=== PATIENT | female | born 1995 | race Caucasian/White ===

== ENCOUNTER 2022-03-26 20:00 | Emergency (ER) | payer OTHER, BC, SELFPAY ==
[2022-03-26 20:02] VITALS: BP 155/101; PULSE 104; RESP 20; TEMP 36.3; O2SAT 100
--- NOTE | 2022-03-26 20:21 | ED.GENADULT ---
HPI - General Adult General Chief complaint: Dental/Oral Stated complaint: general Time Seen by Provider: 03/26/22 20:08 History of Present Illness HPI narrative: 26-year-old female presenting the emergency department for evaluation of nausea vomiting diarrhea. Patient did have a dental procedure for gum recession a few days ago. Patient had been taking Tylenol for pain control without significant improvement. Patient did contact her dentist and was advised to start taking high doses of ibuprofen. Patient does describe some mild epigastric pain with associated nausea vomiting and diarrhea. Patient states she does have a history of gastritis and does take omeprazole daily. Patient states she is not menstruating and has no prior history of hematuria. Related Data Home Medications Medication Instructions Recorded Confirmed buspirone 10 mg tablet mg 03/26/22 duloxetine 60 mg capsule,delayed mg PO 03/26/22 release lamotrigine 100 mg tablet mg 03/26/22 omeprazole 20 mg capsule,delayed mg 03/26/22 release Allergies Allergy/AdvReac Type Severity Reaction Status Date / Time azithromycin Allergy Unknown Rash Verified 03/26/22 20:26 sulfamethoxazole Allergy Unknown Rash Verified 03/26/22 20:26 tree nut Allergy Unknown Anaphylactic Verified 03/26/22 20:26 Shock trimethoprim Allergy Unknown Rash Verified 03/26/22 20:26 Review of Systems Review of Systems: CONSTITUTIONAL: Denies fever, chills, or sweats. EYES: Denies visual changes, redness, or discharge. ENT: Denies rhinorrhea, congestion, sore throat, or otalgia. CARDIOVASCULAR: Denies chest pain, palpitations, or edema. RESPIRATORY: Denies cough or dyspnea. GASTROINTESTINAL: See HPI GENITOURINARY: Denies dysuria or hematuria. SKIN: Denies rash or itching. MUSCULOSKELETAL: Denies back pain, joint pain, or myalgia. NEUROLOGIC: Denies headache, numbness, or weakness. Exam Narrative: APPEARANCE: Well appearing, no pain, no distress, well-nourished. HEAD: normocephalic, atraumatic. Mouth: Gum packing in place EYES: PERRLA/EOMI, conjunctivae clear. NOSE: Normal no drainage EARS:TMS clear with good light reflex. THROAT: Pharynx clear, no exudate. NECK: Supple. No adenopathy, no masses. RESPIRATORY: Airway patent, respirations nonlabored. Clear to auscultation bilaterally, no rales, rhonchi, wheezing. CARDIOVASCULAR: Regular rate and rhythm without murmurs rubs or gallops. ABDOMINAL: Soft, some epigastric tenderness otherwise abdomen is soft nontender with normal bowel sounds. Nonsurgical abdomen. MUSCULOSKELETAL: Moves all extremities. Strength/ROM intact, No edema, No calf tenderness. NEURO: Alert. Cranial nerves II through XII intact. Grossly intact SKIN: Warm, dry. Normal Color Course Course Emergency Course: Patient was treated with IV saline and IV Zofran. Patient did feel improved with treatment. Patient is afebrile but does have a leukocytosis of 12.9. Patient's abdomen is soft and nontender on reevaluation. Patient did have hematuria, patient denies any vaginal bleeding. Patient also had ketones in her urine but was treated with IV fluids. Urine culture is pending patient does have history of hematuria. Urine does not appear to be infected so antibiotics not being started at this time. Patient was encouraged to increase her omeprazole due to the possibility of her increased ibuprofen use causing gastritis. Patient was encouraged to decrease her ibuprofen intake. Patient was also provided Zofran for nausea control. Patient was encouraged to have close follow-up with her primary care physician. Vital Signs Vital signs: Vital Signs Temperature 97.3 F L 03/26/22 20:02 Pulse Rate 104 H 03/26/22 20:02 Respiratory Rate 20 03/26/22 20:02 Blood Pressure 155/101 H 03/26/22 20:02 Pulse Oximetry 100 03/26/22 20:02 Oxygen Delivery Room Air 03/26/22 20:02 Temperature 97.3 F L 03/26/22 20:02 Pulse Rate 95 03/26/22 22:32 Respiratory
[2022-03-26] MEDS: SODIUM CHLORIDE 0.9% IV 1,000 ML 999 ML IV CONT (20:34)
[2022-03-26] MEDS: ONDANSETRON INJ 4 MG/2 ML VIAL IV PUSH (20:34)
[2022-03-26] MEDS: PANTOPRAZOLE SODIUM IV 40 MG VIAL IV PUSH (20:34)
[2022-03-26 20:45] LABS: Basophils Percent Auto 0.1 % (0.2-1.2); Hematocrit 41.4 % (37.0-47.0); Hemoglobin 13.6 g/dL (12.0-15.0); Immature Granulocyte Absolute 0.05 K/mm3 (0.00-0.031); Immature Granulocyte Percent A 0.4 % (0-0.5); Lymphocytes Absolute Auto 1.42 K/mm3 (0.9-3.2); Mean Corpuscular HGB Conc 32.9 g/dl (32-36); Mean Corpuscular Hemoglobin 26.9 pg (26-34); Mean Corpuscular Volume 81.8 fl (80-100); Monocytes Absolute Auto 0.4 K/mm3 (0.1-0.6); Monocytes Percent Auto 3.2 % (2.6-8.5); Neutrophils Percent Auto 85.3 % (45.5-73.1); Platelet Count Result 375 k/mm3 (150-375); Red Blood Count 5.06 M/mm3 (4.2-5.4); Red Cell Distribution Width 13.8 % (11.5-14.5); White Blood Count 12.9 K/mm3 (4.5-10.0)
[2022-03-26 20:46] LABS: Appearance Urine Clear (Clear); Bilirubin Urine Negative (Negative); Blood Urine 1+ (Negative); Color Urine Yellow (Yellow); Glucose Urine UA Negative (Negative); Ketones Urine 2+ mg/dL (Negative); Leukocyte Esterase Ur Negative LEU/UL (Negative); Nitrate Urine Negative (Negative); Protein Urine 1+ mg/dL (Negative); Specific Grav Ur >= 1.030 (1.001-1.035); Urobilinogen Urine 0.2 mg/dL (<2.0)
[2022-03-26 20:56] LABS: Alanine Aminotransferase 28 U/L (6-35); Albumin Level 4.8 g/dL (3.5-5.1); Alkaline Phosphatase 85 U/L (38-126); Anion Gap 10 mmol/L (8-16); Aspartate Amino Transferase 32 U/L (14-36); Bilirubin,Total 0.5 mg/dL (0.2-1.3); Blood Urea Nitrogen 8 mg/dL (7-17); Calcium 9.4 mg/dL (8.4-10.2); Carbon Dioxide 25 mmol/L (22-30); Chloride 102 mmol/L (98-107); Estimated CRCL calculation 87 ml/min; Estimated Glomerular Filt Rate > 60; Glucose 99 mg/dL (65-110); Potassium 3.7 mmol/L (3.4-5.0); Sodium 137 mmol/L (137-145)
[2022-03-26 21:03] LABS: Bacteria Urine Trace /hpf; Mucus Urine Moderate /lpf; RBC Urine 21-50 /hpf (0-2); Squamous Epithelial Cell Urine Few /hpf (Few)
[2022-03-26 21:06] LABS: Add Urine Microscopic? YES
[2022-03-26 21:28] VITALS: BP 141/96; PULSE 82; RESP 16; O2SAT 100
[2022-03-26 22:32] VITALS: BP 130/89; PULSE 95; RESP 18; O2SAT 100
== END 2022-03-26 22:33 | disposition home or self-care (01) ==
PROVIDERS: Emergency Provider Emergency Medicine; PCP Internal Medicine
DX: R11.2 Nausea with vomiting, unspecified (principal); R31.9 Hematuria, unspecified
CPT/HCPCS: 36415; 80053; 81001; 81025; 85025; 96361; 96374; 96375; 99284; C9113; J2405; J7030

== ENCOUNTER 2024-01-06 18:54 | Emergency (ER) | payer BC, SELFPAY ==
--- NOTE | ~2024-01-06 | CT_ITS ---
CT of the Abdomen and Pelvis: Indication: Abdominal pain Technique: 2.5 mm axial scans were obtained through the abdomen and pelvis following intravenous adm inistration of 100 cc of Omnipaque 350. Dose reduction technique was used on this scan by utilizing a utomated exposure control and iterative reconstruction technique. The dose-length product (DLP) was 3 53.32 mGy-cm. Findings: Scans through the lung bases are unremarkable. The liver, spleen, pancreas, gallbladder, adrenals and kidneys are within normal limits. No evidence of aortic aneurysm. No lymphadenopathy. No bowel obstruction or bowel wall thickening. There is no evidence to suggest acute appendicitis. Images through the pelvis were performed. Urinary bladder unremarkable. No definite pelvic mass seen. Probable trace pelvic free fluid, nonspecific. Impression: Trace pelvic free fluid, nonspecific, possibly physiologic. Reviewed, dictated and finalized at [facility]. DRY FINISHER Impression: Trace pelvic free fluid, nonspecific, possibly physiologic.
[2024-01-06 18:54] VITALS: BP 138/88; PULSE 117; RESP 16; TEMP 36.5; O2SAT 98
[2024-01-06 20:31] VITALS: BP 140/80; PULSE 122; RESP 18; O2SAT 100
[2024-01-06 20:54] LABS: Basophils Percent Auto 0.2 % (0.2-1.2); Hematocrit 38.2 % (37.0-47.0); Hemoglobin 12.8 g/dL (12.0-15.0); Immature Granulocyte Absolute 0.07 K/mm3 (0.00-0.031); Immature Granulocyte Percent A 0.4 % (0-0.5); Lymphocytes Absolute Auto 1.31 K/mm3 (0.9-3.2); Lymphocytes Percent Auto 7.6 % (18.3-44.2); Mean Corpuscular HGB Conc 33.5 g/dl (32-36); Mean Corpuscular Hemoglobin 25.4 pg (26-34); Mean Corpuscular Volume 75.9 fl (80-100); Monocytes Absolute Auto 0.4 K/mm3 (0.1-0.6); Monocytes Percent Auto 2.3 % (2.6-8.5); Neutrophils Absolute Auto 15.5 K/mm3 (1.3-6.7); Neutrophils Percent Auto 89.5 % (45.5-73.1); Platelet Count Result 296 k/mm3 (150-375); Red Blood Count 5.03 M/mm3 (4.2-5.4); Red Cell Distribution Width 14.8 % (11.5-14.5); White Blood Count 17.3 K/mm3 (4.5-10.0)
[2024-01-06 21:04] LABS: Alanine Aminotransferase 23 U/L (6-35); Albumin Level 4.9 g/dL (3.5-5.1); Alkaline Phosphatase 95 U/L (38-126); Anion Gap 14 mmol/L (4-12); Aspartate Amino Transferase 28 U/L (14-36); Bilirubin,Total 0.3 mg/dL (0.2-1.3); Blood Urea Nitrogen 7 mg/dL (7-17); Calcium 10.3 mg/dL (8.4-10.2); Carbon Dioxide 20 mmol/L (22-30); Chloride 103 mmol/L (98-107); Estimated CRCL calculation 109 ml/min; Estimated Glomerular Filt Rate > 60; Glucose 126 mg/dL (65-110); Lipase 126 U/L (23-300); Potassium 3.8 mmol/L (3.4-5.0); Sodium 137 mmol/L (137-145)
[2024-01-06 22:16] LABS: Add Urine Microscopic? YES; Appearance Urine Turbid (Clear); Bacteria Urine None Seen /hpf; Bilirubin Urine Negative (Negative); Blood Urine 1+ (Negative); Color Urine Yellow (Yellow); Glucose Urine UA Negative (Negative); Ketones Urine 3+ mg/dL (Negative); Leukocyte Esterase Ur Negative LEU/UL (Negative); Nitrate Urine Negative (Negative); Non Pathogenic Casts 0-2; Protein Urine 2+ mg/dL (Negative); RBC Urine 51-100 /hpf (0-2); Specific Grav Ur 1.025 (1.001-1.035); Squamous Epithelial Cell Urine None Seen /hpf (Few); Urobilinogen Urine 0.2 mg/dL (<2.0); WBC Urine 0-5 /hpf (0-3); pH Urine >=9.0 (5.0-9.0)
[2024-01-06] MEDS: ONDANSETRON INJ 4 MG/2 ML VIAL IV PUSH (22:20)
[2024-01-06] MEDS: SODIUM CHLORIDE 0.9% IV 1,000 ML 999 ML IV CONT (22:20)
[2024-01-06] MEDS: MORPHINE SULFATE (*CRX) 4 MG/ML INJ IV PUSH (22:44)
--- NOTE | 2024-01-06 22:56 | ED_ITS ---
HPI - General Adult General Chief complaint: Nausea/Vomiting/Diarrhea Stated complaint: n/v Time Seen by Provider: 01/06/24 21:54 History of Present Illness HPI narrative: Patient 28-year-old female who presents emergency department chief complaint of abdominal pain nausea vomiting and diarrhea. Patient reports that she recently had a colposcopy after an abnormal Pap smear patient reports that started having nausea vomiting about every 20 minutes and had some diarrhea. Patient states she has cramping sensation throughout her abdomen the patient denies fever. The patient was seen in urgent care and referred to the emergency department for further evaluation Related Data Home Medications Medication Instructions Recorded Confirmed buspirone 10 mg tablet mg 03/26/22 01/04/24 lamotrigine 100 mg tablet mg 03/26/22 01/04/24 omeprazole 20 mg capsule,delayed mg 03/26/22 01/04/24 release escitalopram oxalate 10 mg tablet 10 mg PO DAILY 12/20/23 01/04/24 (Lexapro) Allergies Allergy/AdvReac Type Severity Reaction Status Date / Time azithromycin Allergy Unknown Rash Verified 01/06/24 20:32 sulfamethoxazole Allergy Unknown Rash Verified 01/06/24 20:32 tree nut Allergy Unknown Anaphylactic Verified 01/06/24 20:32 Shock trimethoprim Allergy Unknown Rash Verified 01/06/24 20:32 Review of Systems Review of Systems: A 10 system review of systems was completed on the patient and is negative except for what is stated in the HPI. Nursing and ancillary documentation was reviewed. [facility] Past Medical History Medical History Abnormal Pap smear of cervix BMI 25.0-25.9,adult Surgical History Surgical History H/O wisdom tooth extraction History of colposcopy Family History Family History Father Hypertension Diabetes mellitus Mother Hypertension Sibling No problems noted. 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 Gender identity (if verbalized by the patient): Female Exam Narrative: GENERAL: Well-appearing, well-nourished, and in no acute distress. HEAD: Normocephalic, atraumatic. EYES: PERRLA and EOMI. ENT: Nares clear, no rhinorrhea or epistaxis. Mucous membranes moist. NECK: Supple. CHEST: Clear to auscultation. No respiratory distress. HEART: Regular rate and rhythm. No murmur heard. Normal peripheral pulses. ABDOMEN: Soft, nontender, nondistended, normal active bowel sounds. EXTREMITIES: Normal range of motion. No edema. SKIN: Warm, dry, no rash. NEURO: No focal deficits. Alert and oriented x3. PSYCH: Normal mood and affect. Course Vital Signs Vital signs: Vital Signs Temperature 36.5 C 01/06/24 18:54 Pulse Rate 117 H 01/06/24 18:54 Respiratory Rate 16 01/06/24 18:54 Blood Pressure 138/88 01/06/24 18:54 Pulse Oximetry 98 01/06/24 18:54 Temperature 36.5 C 01/06/24 18:54 Pulse Rate 98 01/07/24 01:23 Respiratory Rate 14 01/07/24 01:23 Blood Pressure 122/74 01/07/24 01:23 Pulse Oximetry 98 01/07/24 01:23 Medical Decision Making [facility] Narrative Medical decision making narrative: differential diagnosis includes intra-abdominal infection, diverticulitis, colitis, gastroenteritis laboratory studies were obtained on the patient showed a white count of 17.3 electrolytes showed no significant abnormality urinalysis showed 51-100 red blood cells in the urine. CT scan of the abdomen pelvis showed no acute abnormality patient received IV fluids antiemetics and is feeling much better Vital Signs Vital Signs: Vital Signs Temperature 36.5 C 01/06/24 18:54 Pulse Rate 117 H 01/06/24 18:54 Respiratory Rate 16 01/06/24 18:54 Blood Pressure 138/88 01/06/24 18:54 Pulse Oximetry 98 01/06/24 18:54 Temperature 36.5 C 01/06/24 18:54 Pulse Rate 98 01/07/24 01:23 Respiratory Rate 14 01/07/24 01:23 Blood Pressure 122/74 01/07/24 01:23 Pulse Oximetry 98 01/07/24 01:23 Lab Data 01/06/24 20:46 01/06/24 20:46 Labs: Lab Results 01/06/24 01/06/24 Range/Units 20:46 22:02 WBC 17.3 H (4.5-10.0) K/mm3 RBC 5.03 (4.2-5.4) M/mm3 Hgb 12.8 (12.0-15.0) g/dL Hct 38.2 (37.0-47.0) % MCV 75.9 L (80-100) fl MCH 25.4 L (26-34) pg MCHC 33.5 (32-36) g/dl RDW 14.8 H (11.5-14.5) % Plt Count 296 (150-375) k/mm3 MPV 10.0 (7.4-10.4) fl Immature Gran % (Auto) 0.4 (0-0.5) % Neut % (Auto) 89.5 H (45.5-73.1) % Lymph % (Auto) 7.6 L (18.3-44.2) % Early % (Auto) 2.3 L (2.6-8.5) % Eos % (Auto) 0.0 (0-4.4) % Baso % (Auto) 0.2 (0.2-1.2) % Lymph # (Auto) 1.31 (0.9-3.2) K/mm3 Early # (Auto) 0.4 (0.1-0.6) K/mm3 Eos # (Auto) 0.0 (0-0.3) K/mm3 Baso # (Auto) 0.0 (0.0-0.1) K/mm3 Abs Immat Gran (auto) 0.07 H (0.00-0.031) K/mm3 Absolute Neuts (auto) 15.5 H (1.3-6.7) K/mm3 Absolute Nucleated RBC 0.000 (0.0-0.012) K/mm3 Nucleated RBC % 0.0 (0.0-0.2) % Sodium 137 (137-145) mmol/L Potassium 3.8 (3.4-5.0) mmol/L Chloride 103 (98-107) mmol/L Carbon Dioxide 20 L (22-30) mmol/L Anion Gap 14 H (4-12) mmol/L BUN 7 (7-17) mg/dL Creatinine 0.70 (0.7-1.0) mg/dL Estim Creat Clear Calc 109 ml/min Estimated GFR > 60 (59 - ) Glucose 126 H (65-110) mg/dL Calcium 10.3 H (8.4-10.2) mg/dL Total Bilirubin 0.3 (0.2-1.3) mg/dL AST 28 (14-36) U/L ALT 23 (6-35) U/L Alkaline Phosphatase 95 (38-126) U/L Total Protein 9.0 H (6.3-8.2) g/dL Albumin 4.9 (3.5-5.1) g/dL Lipase 126 (23-300) U/L Urine Color Yellow (Yellow) Urine Appearance Turbid H (Clear) Urine pH >=9.0 H (5.0-9.0) Ur Specific [place] 1.025 (1.001-1.035) Urine Protein 2+ H (Negative) mg/dL Urine Glucose (UA) Negative (Negative) mg/dL Urine Ketones 3+ H (Negative) mg/dL Ur Blood (Man) 1+ H (Negative) Urine Nitrate Negative (Negative) Urine Bilirubin Negative (Negative) Urine Urobilinogen 0.2 (<2.0) mg/dL Leukocyte Esterase Rfl Negative (Negative) TAYA/UL Urine RBC 51-100 H (0-2) /hpf Urine WBC 0-5 (0-3) /hpf Ur Squamous Epith Cells None seen (Few) /hpf Urine Bacteria None seen /hpf Urine Casts 0-2 Discharge Plan Discharge Clinical Impression: Abdominal pain, Nausea & vomiting Patient Disposition: Home, Self-Care Condition: Stable Instructions: Antibiotic Form, Acute Nausea and Vomiting (ED), Abdominal Pain (ED) Prescriptions: New ondansetron 4 mg tablet,disintegrating 4 mg PO Q8H PRN (Reason: nausea and vomiting) Qty: 10 0RF No Action escitalopram oxalate [Lexapro] 10 mg tablet 10 mg PO DAILY buspirone 10 mg tablet omeprazole 20 mg capsule,delayed release(DR/EC) lamotrigine 100 mg tablet 1 mg-20 mcg (24)/75 mg (4) tablet 1 tablet PO DAILY Qty: 84 3RF Follow-up/Referrals: Lani,Aravind Rice MD [Primary Care Provider] - Time of Disposition: 02:02
[2024-01-06 23:29] VITALS: BP 140/94; PULSE 93; RESP 12; O2SAT 100
[2024-01-07 01:23] VITALS: BP 122/74; PULSE 98; RESP 14; O2SAT 98
[2024-01-08 10:04] LABS: BEDSIDEPREGUCG Negative (Negative)
== END 2024-01-07 02:10 | disposition home or self-care (01) ==
PROVIDERS: Emergency Provider Emergency Medicine; PCP Internal Medicine
DX: R11.2 Nausea with vomiting, unspecified (principal); R10.9 Unspecified abdominal pain
CPT/HCPCS: 36415; 74177; 80053; 81001; 81025; 83690; 85025; 96361; 96374; 96375; 99284; J2270; J2405; J7030; Q9967

== ENCOUNTER 2025-01-20 01:05 | Day surgery (SDC) | payer BC, SELFPAY ==
--- NOTE | 2025-01-06 14:04 | SUR.PREOP ---
[facility] has started construction of its new state of the art ER which will open Spring 2026. With this, we anticipate parking may be a challenge for some our surgical patients and families. Parking spaces are limited but are available for all Surgical, obstetrics, and ER patients sharing this lot. If you arrive and find you are having a hard time finding a parking space, please note that we understand the challenges, please drive around the hospital and park near Hospital Entrance 1. When you enter this entrance, you can ask a volunteer to direct or take you back to the surgical waiting area to check in. We appreciate everyone?s understanding of these expected challenges while we build for your future. Report to the Outpatient Waiting Room, entrance under the green pavilion located off [address], at time _1000_ on date _01/20/2025_. Planned Procedure Time: _1200_.? Time changes happen often and if your time is changed the preop area will call you the afternoon before. - You and your visitor will be asked to self-screen and do not enter if you have any COVID symptoms. Please call surgeon if you need to reschedule. - A mask is optional within the hospital at this time. Patients may have clear liquids (water, carbonated beverages, clear teas, apple juice) until 3 hours prior to surgery with a maximum of 20 ounces. - No food from midnight until time of surgery and no smoking, or chewing tobacco (or any form of nicotine). No chewing gum, candy or mints. - Infants may have breast milk until 4 hours before surgery, formula 6 hours prior to surgery. - Children will be allowed to drink immediately following surgery.? If applicable, please bring a bottle or sippy cup to assist with drinking. Juice, water, soda, and popsicles are readily available.? For infants on formula, please bring formula the day of surgery.? Pacifiers are allowed. Take only the following medications with a SIP of water on the morning of surgery: _ESCITALOPRAM, BUSPIRONE, LAMOTRIGINE, CONTROL_ DO NOT STOP ANY OF YOUR OTHER PRESCRIPTION MEDICATIONS PRIOR TO SURGERY EXCEPT THE FOLLOWING Hold all vitamins and supplements for 3 days per anesthesiologist. Medications to discontinue per physician _NA_ Date to take last dose_NA_ Please no make-up, nail divehi, hairspray, perfume, deodorant, or body powder the day of surgery.? No jewelry (including any body piercings) or valuables the day of surgery, leave them at home.? Please take a shower or bath the night before, or the morning of, surgery with an antibacterial soap.? Wear comfortable, loose fitting clothing.? Children are encouraged to wear pajamas. - Jewelry must be removed prior to entering the operating room.? Rings and piercings that are not removed may be cut off. - The hospital will not accept responsibility for valuables.? - Please leave all valuables, including medications, at home the day of surgery. If you are going home after surgery, a licensed wagon driver must drive you home.? - NO public transportation without another adult if you receive anesthesia. - We recommend that an adult stay with you for 24 hours following discharge. - We also recommend that you do not drive, make important decision, drink alcoholic beverages, or take any drugs that were not prescribed by your health care provider for at least 24 hours after your discharge time. For Pediatric surgeries, we recommend two adults accompany the child home. Follow any additional instructions given to you from your surgeon. Telephone instructions given to _EASTON_and asked if any additional questions and then verbalized understanding. Patient advised to call surgeon office or pre surgery nurse liaison [phone] if any additional questions.
[2025-01-06 14:11] VITALS: BMI 27.5
--- NOTE | 2025-01-19 14:58 | PM.IMHP ---
H&P: HPI History of Present Illness Date/Time: 01/19/25 14:58 Chief Complaint: Recurrent tonsillitis chronic tonsillitis chronic adenoiditis Narrative: planned surgical procedure Review of Systems Review of Systems: All systems reviewed & are unremarkable except as noted in HPI and below PMFSH Past Medical History Medical History Abnormal Pap smear of cervix BMI 25.0-25.9,adult Surgical History Surgical History History of colposcopy H/O wisdom tooth extraction Family History Family History Father Hypertension Diabetes mellitus Mother Hypertension Sibling No problems noted. 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 Gender identity (if verbalized by the patient): Female Spiritual care concerns: No Meds Home Medications and Allergies Home Medications ?Medication ?Instructions ?Recorded ?Confirmed ?Type lamotrigine 100 mg tablet 100 mg PO DAILY 03/26/22 01/06/25 History omeprazole 20 mg capsule,delayed 20 mg PO DAILY 03/26/22 01/06/25 History release escitalopram oxalate 10 mg tablet 10 mg PO DAILY 12/20/23 01/06/25 History (Lexapro) norethindrone 1 mg-ethinyl 1 tablet PO DAILY #84 tabs 10/03/24 01/06/25 Rx estradiol 20 mcg (24)-iron 75 mg (4) tablet () buspirone 15 mg tablet 15 mg PO BID 10/30/24 01/06/25 History Allergies Allergy/AdvReac Type Severity Reaction Status Date / Time azithromycin Allergy Unknown Rash Verified 01/06/25 13:57 sulfamethoxazole Allergy Unknown Rash Verified 01/06/25 13:57 tree nut Allergy Unknown Anaphylactic Verified 01/06/25 13:57 Shock trimethoprim Allergy Unknown Rash Verified 01/06/25 13:57 Exam Narrative: chronic appearing tonsils and adenoids Assessment and Plan Assessment and plan (1) Recurrent tonsillitis: Code(s): J03.91 - Acute recurrent tonsillitis, unspecified Status: Acute Assessment and Plan: plan OR tonsillectomy adenoidectomy anesthesia general. Risks were discussed bleeding infection damage to surrounding structures postoperative bleeding 5-7% change in taste and swallow which can be permanent numbness of the tongue and throat could be permanent. . Time off work and time off school. Damage to any structure of the clavicle by myself. Damage to any structure in the adduction and remains of anesthesia including vocal cord paralysis. All these things can be permanent. Failure to resolve symptoms if not due to tonsils or adenoids. Inherent risk medication and narcotic use. (2) Adenoiditis: Code(s): J35.02 - Chronic adenoiditis Status: Acute
[2025-01-20] VITALS (10 sets, daily range): BP systolic 127–159; BP diastolic 81–110; PULSE 85–105; RESP 12–18; TEMP 36.1–36.2; O2SAT 97–100
--- OUTSIDE RECORDS SUMMARY | 2025-01-20 01:08 | XMS_ITS | Encounter Summary ---
Author Organization [facility] Address [address] [place] [id number] Care Team Providers Care Roll Icer Machine Name Role Phone Aravind Garibay MD Primary Care Provider [phone] Encounter Details Date Type Department Care Team (Late st Contact Info) Description 01/12/[address] [facility] Family & Internal Medicine [address] [phone] [place], [facility] Provider Thyroid testing results Social History Tobacco Use Types Packs/Day Years Used Date Smoking Tobacco: Never Smokeless Tobacco: Never Alcohol Use Standard Drinks/Week Comments Yes 2 (1 standard drink = 0.6 oz pur e alcohol) 1 drink weekly AUDIT-C Answer Date Recorded Frequency of Alcohol Consumption 2-3 times a wee k 08/27/2018 Average Number of Drinks 1 or 2 019 Frequency of Binge Drinking Never 0 09/2018 PHQ-2 Answer Date Recorded Patient Health Questionnaire-2 Score 0 01/10/2024 Comments No Sex and Gender Information Value Date Recorded Sex Assigned at Female 08/27/2018 9:15 AM CDT Legal Sex Female 9:13 PM CDT Gender Identity Female 08/27/2018 9:15 AM CDT Sexual Orientation Straight 08/27/2018 9: 15 AM CDT documented as of this encounter Plan of Treatment Not on file documented as of this encounter Visit Diagnoses Not on filedocumented in this encounter Additional Health Concerns Assessment Noted Time PHQ-9 Depression Total Score: 3 01/10/20 24 12:06 PM [employer] documented as of this encounter Care Teams Roll Icer Machine Relationship Specialty Start Date End Date Aravind Garibay MD [address] [place] [id number] PCP - General INTERNAL MEDICINE 08/27/18 documented as of this encounter
--- OUTSIDE RECORDS SUMMARY | 2025-01-20 01:09 | XMS_ITS | Clinical Summary ---
Author Organization [facility] Address [address] [place] [address] Care Team Providers Care Geospatial Intelligence Analyst Name Role Phone Aravind Garibay MD Primary Care Provider [phone] Allergies Active Allergy Reactions Criticality Noted Date Comments Sulfamethoxazole-Trimethoprim Rash Medium 2022 Tree Nuts Anaphylaxis High 08/01/2022 Azithromycin Rash Medium 08/01/[address] (CYMBALTA) 60 mg capsule 3 Active busPIRone (BUSPAR) 10 mg tablet Take 1 tablet (10 mg total) by mouth 2 (two) times a day 0 Active Fe 24 1 mg-20 mcg (24)/75 mg (4) per tablet 3 Active omeprazole (PriLOSEC) 20 mg capsule Take 1 tablet by mouth daily 3 Active cholecalciferol (Vitamin D3) 2000 unit capsule Active EPINEPHrine 0.3 mg/0.3 mL auto-injection syringe Inject 0.3 mL (0.3 mg total) into the muscle as instructed as needed 8 Active escitalopram (LEXAPRO) 10 mg tablet TAKE 1 TABLET BY MOUTH ONCE DAILY . APPOINTMENT REQUIRED FOR FUTURE REFILLS 4 Active lamoTRIgine (LaMICtal) 100 mg tablet Take 1 tablet (100 mg total) by mouth daily Active loratadine (CLARITIN) 10 mg tablet Take 1 tablet (10 mg total) by mouth daily Active venlafaxine XR (Effexor XR) 150 mg 24 hr capsule Active norethindrone-e .estradioL-iron () 1 mg-20 mcg (24)/75 mg (4) per tablet Active Active Problems No known active problems Family History Medical History Relation Name Comments Depression Other Depression - -- mom (Added by TW Conv) Irritable bowel syndrome Other Irr itable Bowel Syndrome - --Mom and grandma (Added by TW Conv) Ulcerative colitis Other Ulcerativ e Colitis - --MGM (Added by TW Conv) Ulcers Other Peptic Ulcer - --mom and dad (Added by TW Conv) Relation Name Status Comments Other Social History Tobacco Use Types Packs/Day Years Used Date Smoking Tobacco: Never Tobacco Cessation:Counseling Given: Not Answered Comments Unknown Sex and Gender Information Value Date Recorded Sex Assigned at Not on file Legal Sex Female 12:18 PM TIRE SETTER Gender Identity Not on file Sexual Orientation Not on file Last Filed Vital Signs Vital Sign Reading Time Taken Comments Blood Pressure 156/102 01/06/2024 6:18 PM TIRE SETTER Pulse 125 01/06/2024 6:42 PM TIRE SETTER Temperature 36.9 C (98.4 F) 01/06/2024 6:18 PM TIRE SETTER Respiratory Rate 26 01/06/2024 6:42 PM TIRE SETTER Oxygen Saturation 100% 01/06/2024 6:18 PM TIRE SETTER Inhaled Oxygen Concentration - - Weight 68 kg (150 lb) 01/06/2024 6:18 PM TIRE SETTER Height 169 cm (5' 6.54) 08/01/2022 11:54 AM CDT Body Mass Index 23.82 08/01/2022 11:54 AM CDT Plan of Treatment Health Maintenance Due Date Last Done Comments Cervical Cancer Screening 1995 Depression Screening 1995 Hepatitis C Screening 1995 Varicella Vaccines (1 of 2 - 13+ 2-dose series) 08/07/2008 Hepatitis B Screening 08/07/2013 Regular Well Visit/Exam 18-64 08/07/2013 HPV Vaccines (1 - 3-dose SCDM series) 08/07/2022 Covid-19 Vaccine ( season) 2024 01/20/2022, 02/26/2021, 06/07/2020, Additional history exists Influenza Vaccine (#1) 2024 2, 02/26/2021, 12/13/2019, Additional history exists DTaP/Tdap/Td Vaccine (2 - Td or Tdap) 08/30/2027 08/29/2017 Pneumococcal vaccine <65 Aged Out No longer eligible based on patient's age to complete this topic Insurance [facility] H[facility]PP[facility] Address: [address] [address] [place] [address] Care Teams Geospatial Intelligence Analyst Relationship Specialty Start Date End Date Aravind Garibay MD [address] [place] [id number] PCP - General Internal Medicine 08/01/22
--- OUTSIDE RECORDS SUMMARY | 2025-01-20 01:09 | XMS_ITS | Patient Health Record ---
Author Organization [facility] Address [address] [place] [address] Care Team Providers Care Sword Swallower Name Role Phone Aravind Garibay MD Primary Care Provider Unavail able Jordyn Camejo Unavailable [phone] Allergies Allergen (clinical drug ingredient) Drug/Non Drug Allergy documented on EMR Reaction Allergy Type Onset Date Status sulfamethoxazole / trimethoprim Bactrim Unknown Drug Allergy 02/08/2023 Active azithromycin Zithromax Unknown Drug Allergy 02/08/2023 Act bashir Reason For Referral No Information Medications Medication SIG (Take, Route, Frequency, Duration) Notes Start Date End Date Status busPIRone HCl 15 MG Tablet 1 tablet Oral Twice a day; Duration: 90 days Active Escitalopram Oxalate 10 MG Tablet 1 tablet Oral Once a day; Duration: 90 days Active busPIRone HCl 15 MG Tablet 1 tablet Oral Twice a day; Duration: 90 days Active Junel Fe 24 1 mg-20 mcg (24)/75 mg (4) Tablet Oral *Pick strength-form from [employer] for eRX* 05/08/2023 Active EPINEPHrine 0.3 MG/0.3ML Solution Auto-injector Injection 05/08/2023 Active lamoTRIgine 100 MG Tablet 1 tablet Oral Once a day; Duration: 90 days Active Ondansetron HCl 4 MG Tablet 1 tablet Orally Once a day As needed for nasuea 09/23/2024 Active Omeprazole 20 MG Capsule Delayed Release Oral 05/08/2023 Active Immunizations Vaccine Route Administration Date Status Comme nts Tdap Unknown 08/29/2017 Administered State Covid-19 Vac cine 2nd dose Unknown 05/17/2020 Administered Pfizer Biontech Covid-19 Vac cine 2nd dose Unknown 06/07/2020 Administered Pfizer Biontech Covid-19 Vac cine 2nd dose Unknown 02/26/2021 Administered Novel [id number], preservative free Unknown 12/13/2019 Administered Influenza, injectable, MDCK, preservative free Unknown 01/05/2016 Administered Influenza, injectable, MDCK, preservative free Unknown 12/22/2016 Administered Influenza virus vaccine, quadrivalent (IIV4), split virus, 0.25 mL dosage Unknown 12/27/2018 Administered Social History Tobacco Use: Social History Observation Description Date Details (start date - stop date) Never Smoker NA - NA Sex Assigned At : Social History Observation Description Sex Assigned At Female Social History Miscellaneous: Social Info Question Answer Notes Advance Care Planning Are you your own decision-maker Yes Do you have Power of Automotive Upholsterer for Health or Medi sher? No Tobacco Use: Social Info Question Answer Notes Tobacco Control (Standard) Tobacco use: Nonsmoker Additional Details Category Social Info Options Details Migrated Social History Migrated Social History Alcohol Intake: Occasional 03/29/2018,Tobacco Years: Never smoker 03/29/2018 Problems Problem Type SNOMED Code ICD Code Onset Dates Problem Status W/U Status Risk Notes Problem Severe recurrent major depression without psychotic features (78200908) Major depressive disorder, recurrent severe without psychotic features (F33.2) Active confirmed Problem Generalized anxiety disorder (28315752) Generalized anxiety disorder (F41.1) Active confirmed Vital Signs Heart Rate 86 /min 07/22/2024 Height-cm 165.10 cm 07/22/2024 Blood pressure diastolic 97 mm Hg 07/22/2024 Weight-kg 76.66 kg 07/22/2024 Height 65.00 in 07/22/2024 Blood pressure systolic 139 mm Hg 07/22/2024 Weight 169 lbs 07/22/2024 BMI 28.12 kg/m2 07/22/2024 Encounters Encounter Location Date Provider Diagnosis [facility] [address] [place] [address] 03/18/2024 Jordyn Camejo Major depressive disorder, recurrent severe without psychotic features F33.2 and Generalized anxiety disorder F41.1 [facility] [address] [place] [address] 04/22/2024 Jordyn Camejo Major depressive disorder, recurrent severe without psychotic features F33.2 and Generalized anxiety disorder F41.1 [facility] [address] [facility] [address] [place] [address] 07/22/2024 Jordyn Nell Major depressive disorder, recurrent severe without psychotic features F33.2 ; Generalized anxiety disorder F41.1 and Negative depression screening Z13.31 [place] [address] [facility] [address] [place] [address] 03/19/2024 Jordyn Camejo [facility] [address] [facility] [address] [place] [address] 02/04/2024 Jordyn Camejo Generalized anxiety disorder F41.1 and Major depressive disorder, recurrent severe without psychotic features F33.2 [place] [address] [address] 02/07/2024 Jordyn Camejo [place] [address] [address] 03/01/2024 Jordyn Camejo [place] [address] [address] 03/12/2024 Jordyn Camejo [place] [address] [address] 04/22/2024 Jordyn Camejo Major depressive disorder, recurrent severe without psychotic features F33.2 [place] [address] [address] 09/23/2024 Jordyn Camejo Assessments Encounter Date Diagnosis (ICD Code) Assessment Notes Treatment Notes Treatment Clinical Notes Section Notes 02/04/2024 Generalized anxiety disorder (ICD-10 - F41.1) 03/18/2024 Major depressive disorder, recurrent severe without psychotic features (ICD-10 - F33.2) 04/22/2024 Major depressive disorder, recurrent severe without psychotic features (ICD-10 - F33.2) 07/22/2024 Major depressive disorder, recurrent severe without psychotic features (ICD-10 - F33.2) Lamotrigine is an anticonvulsant and mood stabilizer used in psychiatry. Lamotrigine use is associated with benign rashes (incidence approximately 10%) and rare serious rashes that may require hospitalization and discontinuation of treatment, including Ryan-Brian syndrome and toxic epidermal necrolysis. Pt educated on importance of titration schedule and to take the medication only as prescribed. Pt educated that if they miss 5 or more consecutive doses then this medication will need to be re-titrated to reduce risk of rash. If any rash is noted, patient is instructed to stop taking this medication and call office. If rash is severe, they are to present immediately to the emergency room. SSRI/SNRI side effects discussed including but not limited to, gastric upset, nausea, vomiting, diarrhea and/or constipation, weight changes, sexual side effects including loss of libido, increased suicidal thoughts/behaviors in children and young adults, and serotonin syndrome. 04/22/2024 Major depressive disorder, recurrent severe without psychotic features (ICD-10 - F33.2) Lamotrigine is an anticonvulsant and mood stabilizer used in psychiatry. Lamotrigine use is associated with benign rashes (incidence approximately 10%) and rare serious rashes that may require hospitalization and discontinuation of treatment, including Ryan-Brian syndrome and toxic epidermal necrolysis. Pt educated on importance of titration schedule and to take the medication only as prescribed. Pt educated that if they miss 5 or more consecutive doses then this medication will need to be re-titrated to reduce risk of rash. If any rash is noted, patient is instructed to stop taking this medication and call office. If rash is severe, they are to present immediately to the emergency room. SSRI/SNRI side effects discussed including but not limited to, gastric upset, nausea, vomiting, diarrhea and/or constipation, weight changes, sexual side effects including loss of libido, increased suicidal thoughts/behaviors in children and young adults, and serotonin syndrome. 04/22/2024 Generalized anxiety disorder (ICD-10 - F41.1) 07/22/2024 Generalized anxiety disorder (ICD-10 - F41.1) 03/18/2024 Generalized anxiety disorder (ICD-10 - F41.1) 02/04/2024 Major depressive disorder, recurrent severe without psychotic features (ICD-10 - F33.2) 07/22/2024 Negative depression screening (ICD-10 - Z13.31) 03/18/2024 Other Increase buspar to 15mg BID for anxiety Patient educated on all medications including potential benefits, side effects, risks. Educated on proper dosing schedule and importance of compliance. Cont individual counseling -Assessment and treatment plan reviewed with patient. -Compliance with treatment plan importance discussed. -Discussed the risks/benefits of this medication -Discussed medication side effects. -Contact office if symptoms worsen. -Discussed that it can take up to 6-8 weeks to see full therapeutic effects of psychotropic medications. -Crisis prevention hotline 988. 04/22/2024 Other Stable, cont current medications. Refills sent in today. Patient educated on all medications including potential benefits, side effects, risks. Educated on proper dosing schedule and importance of compliance. Cont individual counseling -Assessment and treatment plan reviewed with patient. -Compliance with treatment plan importance discussed. -Discussed the risks/benefits of this medication -Discussed medication side effects. -Contact office if symptoms worsen. -Discussed that it can take up to 6-8 weeks to see full therapeutic effects of psychotropic medications. -Crisis prevention hotline 988. 07/22/2024 Other Stable on current medication regimen, continue at current doses. -Refills sent in today -No concerns today Patient educated on all medications including potential benefits, side effects, risks. Educated on proper dosing schedule and importance of compliance. -Assessment and treatment plan reviewed with patient. -Compliance with treatment plan importance discussed. -Discussed the risks/benefits of this medication -Discussed medication side effects. -Contact office if symptoms worsen. -Discussed that it can take up to 6-8 weeks to see full therapeutic effects of psychotropic medications. -Crisis prevention hotline 988. 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
--- OUTSIDE RECORDS SUMMARY | 2025-01-20 01:09 | XMS_ITS | Clinical Summary ---
Author Organization [facility] Address [facility] [place] [address] Care Team Providers Care Embroiderer Hand Name Role Phone Aravind Garibay MD Primary Care Provider Allergies Active Allergy Reactions Criticality Noted Date Comments Azithromycin Rash,Unknown Low 08/21/2014 Nuts Anaphylaxis High 03/26/2022 Sulfamethoxazole-Trimethoprim Rash,Unknown Low 03/2014 Medications loratadine (CLARITIN) 10 MG tablet Take 1 tablet (10 mg total) by mouth daily. 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 1 each 09/21/19 19 Active multi vitamin/minerals tablet Take 1 tablet by mouth daily. Active Norethin Malcom-Eth Estrad-FE () 1-20 MG-MCG() tabletIndications :Encounter for contraceptive management, unspecified type TAKE 1 TABLET BY MOUTH DAILY (GENERIC EQUIVALENT FOR LOMEDIA) 28 tablet 12/29/19 24 Active escitalopram (LEXAPRO) 10 MG tablet Take 1 tablet (10 mg total) by mouth daily. 01/01/20 24 Active lamoTRIgine (LAMICTAL) 100 MG tablet Take 1 tablet (100 mg total) by mouth daily. Active ondansetron (ZOFRAN) 4 MG tablet daily. 09/24/19 25 Active omeprazole (PRILOSEC) 20 MG capsuleIndication s:Gastroesophagea l reflux disease without esophagitis Take 1 capsule (20 mg total) by mouth daily. 30 capsule 8 01/14/20 25 Active busPIRone (BUSPAR) 15 MG tabletIndications :Mild episode of recurrent major depressive disorder Take 1 tablet (15 mg total) by mouth 2 (two) times a day. 90 tablet 1 01/14/20 25 Active omeprazole (PRILOSEC) 20 MG capsuleIndication s:Gastroesophagea l reflux disease without esophagitis Take 1 capsule (20 mg total) by mouth daily. 30 capsule 8 03/27/19 25 025 Discontin ued(Reord er) busPIRone (BUSPAR) 15 MG tablet Take 1 tablet (15 mg total) by mouth 2 (two) times a day. 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 Depression 08/21/2014 Encounters Date Type Department Care Team Description 01/13/2025 8:00 AM INTERNET MARKETING COORDINATOR Office Visit [facility] Family & Internal Medicine [address] [address] Aravind Garibay MD Annual (Patient presenting to the office today for routine annual visit- reports no new concerns ) 01/13/2025 Travel from Last 3 Months Immunizations Immunization Administration Dates Next Due H1N1 Injectable 2008 Influenza 12/13/2019 Influenza (Generic) 12/23/2016,01/06/2016 Influenza Adult (Generic) 02/26/2021,12/13/2019 PFIZER COVID-19 (12+) MRNA, LNP-S, PF, LAKHWINDER-SUCROSE, 30 MCG/0.3 ML (COMIRNATY) 01/10/2024 PFIZER COVID-19 (ORIGINAL FO RMULATION, PURPLE CAP) mRNA, LNP-S, PF, 30 MCG/0.3 ML DOSE 02/26/2021,06/07/2020,05/17/2020 PFIZER COVID-19 BIVALENT (12 +) mRNA, LNP-S, PF, 30 MCG/0.3 ML DOSE 01/20/2022 Tdap (Generic) 08/29/2017 Family History Medical History Relation Comments Hypertension Father Arthritis Maternal Grandmother COPD Maternal Grandmother Depression Maternal Grandmother Hypertension Maternal Grandmother Stroke Maternal Grandmother Arthritis Mother Depression Mother Hypertension Mother Cancer Paternal Uncle Colon Cancer Paternal Uncle Relation Status Comments Father Alive Maternal Grandmother Mother Alive Paternal Uncle Social History Tobacco Use Types Packs/Day Years Used Date Smoking Tobacco: Never Smokeless Tobacco: Never Tobacco Cessation:Counseling Given: Not Answered Alcohol Use Standard Drinks/Week Comments Yes 2 (1 standard drink = 0.6 oz pur e alcohol) 1 drink weekly AUDIT-C Answer Date Recorded Frequency of Alcohol Consumption 2-3 times a wee k 08/27/2018 Average Number of Drinks 1 or 2 019 Frequency of Binge Drinking Never 09/2018 PHQ-2 Answer Date Recorded Patient Health Questionnaire-2 Score 0 09/27/2024 Comments No Sex and Gender Information Value Date Recorded Sex Assigned at Female 08/27/2018 9:15 AM CDT Legal Sex Female 9:13 PM CDT Gender Identity Female 08/27/2018 9:15 AM CDT Sexual Orientation Straight 08/27/2018 9: 15 AM CDT Last Filed Vital Signs Vital Sign Reading Time Taken Comments Blood Pressure 102/64 01/13/2025 8:08 AM INTERNET MARKETING COORDINATOR Pulse 74 01/13/2025 8:08 AM INTERNET MARKETING COORDINATOR Temperature 36.7 C (98.1 F) 01/13/2025 8:08 AM INTERNET MARKETING COORDINATOR Respiratory Rate 16 01/13/2025 8:08 AM INTERNET MARKETING COORDINATOR Oxygen Saturation 98% 01/13/2025 8:08 AM INTERNET MARKETING COORDINATOR Inhaled Oxygen Concentration - - Weight 75.3 kg (166 lb 1.6 oz) 01/13/2025 8:08 A M INTERNET MARKETING COORDINATOR Height 167.6 cm (5' 6) 01/13/2025 8:08 AM INTERNET MARKETING COORDINATOR Body Mass Index 26.81 01/13/2025 8:08 AM INTERNET MARKETING COORDINATOR Plan of Treatment Health Maintenance Due Date Last Done Comments Hepatitis B Vaccines (1 of 3 - 19+ 3-dose series) 08/07/2014 HPV Vaccines (1 - 3-dose SCDM series) 08/07/2022 COVID-19 Vaccine (2024- season) 2024 01/10/2024, 01/20/2022, 02/26/2021, Additional history exists Influenza Adult (#1) 2024 02/26/2021, 12/13/2019, 12/13/2019, Additional history exists Cervical Cancer Screening Pap Smear (Age 21 to 29) Every 3 Years 08/30/2025 08/30/2022, 08/30/2022, 06/16/2021, Additional history exists Cervical Cancer Screening 08/30/2025 Annual Physical 01/13/2026 01/13/2025, 12/22, 10/12/2022, Additional history exists DTaP, Tdap and Td Vaccines (2 - Td or Tdap) 08/30/2027 08/29/2017 Hepatitis C Completed 09/02/2022 PHQ-2 (Physician [employer]) Completed 09/27/2024 Hepatitis A Vaccines Aged Out No long er eligible based on patient's age to complete this topic Meningococcal B Vaccine Aged Out No l onger eligible based on patient's age to complete this topic Meningococcal Vaccine Aged Out No moira anel eligible based on patient's age to complete this topic Pneumococcal Vaccine: Pediatrics (0 to 5 Years) and At-Risk Patients (6 to 49 Years) Aged Out No longer eligible based on patient's age to complete this topic RSV Immunizations Under 20 Months Aged Out No longer eligible based on patient's age to complete this topic Procedures Procedure Name Priority Date/Time Associated Diagnosis Comments HEPATITIS C ANTIBODY W/RFX TO HCV RNA Routine 09/02/2022 8:41 AM CDT Screen for STD (sexually transmitted disease) HPV GENOTYPES 16, 18/45 08/30/2022 4:35 PM CDT from Last 3 Months or Most Recently Relevant to Health Maintenance Results * HEPATITIS C ANTIBODY W/RFX TO HCV RNA ([facility] ONLY) (09/02/2022 8:41 AM CDT) HEPATITIS C AB NON-REACT EDGAR NON-REACT EDGAR [employer] [facility] Comment: HCV antibody was non-reactive. There is no laboratory evidence of HCV infection. In most cases, no further action is required. However, if recent HCV exposure is suspected, a test for HCV RNA (test code 84060) is suggested. For additional information please refer to http://education.[employer]/faq/VOW50e5 (This link is being provided for informational/ educational purposes only.) 09/02/2022 8:41 AM CDT 09/02/2022 8:41 AM CDT Narrative Resulting Agency Comment Performing Organization Information: Site ID: [id number] Name: [facility] Address: [address] [place] [id number] Director: Luis Gardiner MD [facility] Final Resul t [facility] [id number] [place] [address] * (ABNORMAL) HPV GENOTYPES 16, 18/45 (08/30/2022 4:35 PM CDT) Pathologist [facility] HPV APTIMA Positive(A) Negative [facility] 1 Comment: This nucleic acid amplification test detects fourteen high-risk HPV types (16,18,31,33,35,39,45,51,52,56,58,59,66,68) without differentiation. HPV 16 RNA Negative Negative [facility] 1 HPV 18/45 RNA Negative Negative [facility] 1 08/30/2022 4:35 PM CDT 08/30/2022 Comment:CERVIX Specimen Sour c Narrative [facility] - 09/09/2022 12:10 PM CDT Performed at: - [address] [id number] Environmental Services Assistant: Latisha Luna MD, Phone: [phone] Specimen Comment: No. of containers..01 ThinPrep Vial [facility]/CYTOLOGY ORDERABL ES Final Result [facility] [address] [place] [address] [facility] 1 from Last 3 Months or Most Recently Relevant to Health Maintenance Insurance [facility] Care Teams Embroiderer Hand Relationship Specialty Start Date End Date Aravind Garibay MD [address] [place] [id number] PCP - General INTERNAL MEDICINE 08/27/18
[2025-01-20] MEDS: ACETAMINOPHEN 500 MG TABLET 1000 MG PO (10:26)
[2025-01-20 11:21] LABS: BEDSIDEPREGUCG Negative (Negative)
--- NOTE | 2025-01-20 11:28 | WPDHPUPDATE1 ---
History and Physical Update Update Date/Time: 01/20/25 11:28 History and Physical has been reviewed, including an updated exam of the patient. There are NO changes in the patient's condition. Risks, benefits, and alternatives have been discussed and questions answered. Patient agrees to proceed with procedure.
--- NOTE | 2025-01-20 11:50 | SUR.PREOP ---
PATIENT AND FAMILY NOTIFIED OF DELAY. ESTIMATED CASE TIME IS NOW 1230.
--- NOTE | 2025-01-20 12:37 | WPDANESEPPF ---
Anes - Initial Pre Proc Eval Procedure: Operation Date: 01/20/25 12:00 Proposed Procedures p Tonsillectomy And Adenoidectomy - Mahin Pereyra MD Date/Time: 01/20/25 12:37 Surgeon: Mahin Pereyra MD Pre Op Diagnosis: Accute recurrent Tonsillitis Patient Data Age: 29 Gender: F Height: 1.68 m Weight: 73.8 kg Last Vital Signs Temp 36.2 C L 01/20/25 10:15 Pulse 85 01/20/25 10:15 Resp 18 01/20/25 10:15 BP 130/84 01/20/25 10:15 Pulse Ox 98 01/20/25 10:15 O2 Del Method Room Air 01/20/25 10:15 Allergies Allergy/AdvReac Type Severity Reaction Status Date / Time azithromycin Allergy Unknown Rash Verified 01/20/25 11:09 sulfamethoxazole Allergy Unknown Rash Verified 01/20/25 11:09 tree nut Allergy Unknown Anaphylactic Verified 01/20/25 11:09 Shock trimethoprim Allergy Unknown Rash Verified 01/20/25 11:09 Home Medications ?Medication ?Instructions ?Recorded ?Confirmed ?Type lamotrigine 100 mg tablet 100 mg PO DAILY 03/26/22 01/20/25 History omeprazole 20 mg capsule,delayed 20 mg PO DAILY 03/26/22 01/20/25 History release escitalopram oxalate 10 mg tablet 10 mg PO DAILY 12/20/23 01/20/25 History (Lexapro) norethindrone 1 mg-ethinyl 1 tablet PO DAILY #84 tabs 10/03/24 01/20/25 Rx estradiol 20 mcg (24)-iron 75 mg (4) tablet () buspirone 15 mg tablet 15 mg PO BID 10/30/24 01/20/25 History Laboratory Tests 01/20/25 10:21 POC Urine HCG, Qual Negative (Negative) Patient hx anesthesia problems: none Family hx anesthesia problems: none Results Review: All pre-operative results and documents have been reviewed as part of the pre-operative evaluation. [facility] Past Medical History Medical History Abnormal Pap smear of cervix BMI 25.0-25.9,adult Surgical History Surgical History History of colposcopy H/O wisdom tooth extraction Family History Family History Father Hypertension Diabetes mellitus Mother Hypertension Sibling No problems noted. 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 Gender identity (if verbalized by the patient): Female Spiritual care concerns: No Anes - Eval Final PreProcedure Day of Procedure 01/20/25 12:37 Patient weight: overweight Heart: regular rate and rhythm Lungs: clear to auscultation Airway: Mallampati scale class 1 Neurological: alert and oriented Last oral intake: >/= 8 hours ASA classification: II Emergent: no Anesthetic plan: proceed Anesthesia type and monitoring: general ETT and standard monitoring Results Review: All pre-operative results and documents have been reviewed as part of the pre-operative evaluation. Informed Consent: The patient's anesthetic plan and its attendant risks and benefits were discussed with the patient/family/POA. Questions were solicited and answers provided to the satisfaction of the patient/family/POA.
[2025-01-20] MEDS: SCOPOLAMINE 1 MG PATCH 1 PATCH TRANSDERM (12:44)
--- NOTE | 2025-01-20 13:05 | S_PTH ---
PATIENT: Araseli Crowley LOC: [facility] U#:[id number] AGE/SX: 29/F ROOM: RE01/20/[address]: Mahin Pereyra MD : 1995 BED: DIS: 01/20/2025 SPEC #: [id number] RECD: 01/20/25 14:20 STATUS: EPIFANIO PRADO #: [id number] ROBERT: 01/20/25 13:[address]: Mahin Pereyra DEPT: [facility] RECD BY: Yessenia Mckeon ENTERED: 01/20/25 14:20 SP TYPE: Surgical OTHR DR: Aravind GaribayMD Tissues: A - Tonsils Procedures: Gross and Microscopic Level 2
[2025-01-20] MEDS: LACTATED RINGERS 1,000 ML 30 ML IV CONT ×2 (13:38→13:50)
[2025-01-20] MEDS: fentaNYL CITRATE INJ (*CRX) 100 MCG/2 ML VIAL 25 MCG IV PUSH ×5 (13:47→14:25)
--- NOTE | 2025-01-20 14:02 | W.PM.PROC2 ---
Procedure Note - Detailed Date of Procedure 01/20/25 Pre-op Diagnosis Accute recurrent Tonsillitis, adenoiditis Post-op Diagnosis Same Procedure Performed 1. Tonsillectomy 2. Adenoidectomy Surgeon Mahin Pereyra MD Anesthesia General Indications See above Findings Endophytic tonsils scarred in consistent with chronic on recurrent tonsillitis. One front of adenoid tissue in the midline chronic appearing. Description of Procedure Patient identified consent verified the preoperative holding area. Patient brought to the operating room. Time-out performed. General anesthesia induced endotracheal tube secured airway. Patient prepped draped position 2nd time-out performed procedure confirmed. [employer] mouth gag inserted to reveal the tonsils described above. They were removed bilaterally in the extracapsular plane using Coblator. Any bleeding was also controlled with Coblator. In-between the tonsils, as this was a bilateral procedure, the [employer] mouth gag was lowered and reopened. Red rubber catheters were then inserted revealing the adenoids described above. These were removed with Coblator. No bleeding. McIvor mouth gag and rubber catheters removed. Care the patient was given back to Anesthesiology. Total blood loss 1-2 cc. No complications. I performed all dictated portions of the procedure. Patient taken to PACU in good condition with no complications. Estimated Blood Loss 1 Drains No Packing No Pathology Yes Complications No immediate complications Condition Stable Disposition PACU [facility] Billing Surgery - Charge Forward: Surgery Billing
[2025-01-20] MEDS: ONDANSETRON INJ 4 MG/2 ML VIAL IV PUSH (14:58)
[2025-01-20] MEDS: oxyCODONE HCL (*CRX) 5 MG TAB IR PO (15:17)
== END 2025-01-20 16:15 | disposition home or self-care (01) ==
PROVIDERS: PCP Internal Medicine; Visit Provider Otolaryngology
PROC: (CPT 42821; principal; 2025-01-20 12:00)
DX: J03.91 Acute recurrent tonsillitis, unspecified (principal); J35.01 Chronic tonsillitis
CPT/HCPCS: 42821; 88302; A9270; J1100; J2003; J2250; J2405; J2704; J3010; J7030; J7120